=== PATIENT | male | born 1990 | race Caucasian/White ===

== ENCOUNTER 2023-04-24 08:43 | Outpatient (CLI) | payer OTHER, SELFPAY ==
--- NOTE | ~2023-04-24 | XR_ITS ---
EXAMINATION: XR fl inj shoulder RT - MR/CT DATE: 04/24/2023 09:52 INDICATION: Right shoulder pain. Right shoulder dislocation and relocation at home. No prior surgery. TECHNIQUE: A time-out was performed to verify the patient's name, date of , and procedure to b e performed. The procedure including the risks, benefits, and alternatives was discussed with the pat ient. Risks discussed included bleeding and infection. The patient understood the risks and agreed to proceed. The skin overlying the right glenohumeral joint was prepped and draped in usual sterile fas hion. Anesthetic was administered with 1% lidocaine subcutaneously. A 22 G needle was advanced unde r fluoroscopic guidance into the joint. Subsequently, injectate consisting of 12 mL of 1:200 Multiha nce, 1:4 1% lidocaine, and 1:4 Omnipaque 240 was instilled. The needle was removed and the entry sit e was cleaned and dressed. There were no immediate complications. Fluoroscopy exposure time was 0.1 minutes. The total number of images was 2. FINDINGS: Real-time fluoroscopy demonstrates the needle and contrast in the right glenohumeral joint. IMPRESSION: 1. Successful right glenohumeral joint injection of contrast for subsequent MR arthrography. Reviewed, dictated and finalized at location A. [employer]
--- NOTE | ~2023-04-24 | MR_ITS ---
EXAMINATION: MR shoulder RT w con DATE: 04/24/2023 10:46 INDICATION: Right shoulder pain. TECHNIQUE: Magnetic resonance imaging (MRI) of the right shoulder was performed without intravenous c ontrast after intra-articular injection of contrast (MR arthrogram). COMPARISON: None. FINDINGS: Coracoacromial arch: The acromion undersurface is flat in morphology (type I). There is mild acromioclavicular joint osteo arthritis. There is mild subacromial/subdeltoid bursitis. Rotator cuff: There is mild supraspinatus and infraspinatus tendinopathy. Teres minor tendon is normal. Subscapular is tendon is normal. There is no fatty atrophy of the rotator cuff muscle bellies. Biceps tendon and glenoid labrum: Biceps tendon is in bicipital groove. Intra-articular biceps tendon is normal. There is a tear of sup erior glenoid labrum from 2:00 to 8:00 (SLAP tear). Fluid: The glenohumeral joint is well distended by contrast. There is no contrast in subacromial/subdeltoid bursa. Bones/cartilage: There is no Hill-Sachs fracture deformity. Humeral head cartilage is normal. Glenoid cartilage is nor mal. There is mild subchondral edema-like marrow signal intensity involving posterior inferior glenoi d. IMPRESSION: 1. SLAP tear. 2. Mild rotator cuff tendinopathy. No tear. 3. Mild subacromial/subdeltoid bursitis. 4. Mild acromioclavicular joint osteoarthritis. Reviewed, dictated and finalized at location A. [employer]
== END 2023-04-24 08:44 | disposition home or self-care (01) ==
LOC: ANHIMG 08:48
PROVIDERS: PCP Speech-Language Pathologist; Visit Provider Orthopaedic Surgery
DX: M25.311 Other instability, right shoulder (principal); S43.431A Superior glenoid labrum lesion of right shoulder, initial encounter; M75.51 Bursitis of right shoulder; M19.011 Primary osteoarthritis, right shoulder
CPT/HCPCS: 23350; 73222; 77002; A9577; Q9966